=== PATIENT | male | born 1975 | race Caucasian/White ===

== ENCOUNTER 2021-04-29 15:17 | Emergency (ER) | payer BC, SELFPAY ==
--- NOTE | ~2021-04-29 | XR_ITS ---
EXAMINATION: XR ELBOW, RIGHT CLINICAL INFORMATION: Pain COMPARISON: None TECHNIQUE: AP, lateral, and oblique views of the right elbow. FINDINGS: The bones and soft tissues are normal. No fracture or joint effusion. Alignment is anatomic. Joint spaces are maintained. XR/XR elbow RT min 3V IMPRESSION: Unremarkable right elbow exam.
[2021-04-29 15:34] VITALS: BP 131/88; PULSE 95; RESP 16; TEMP 36.6; O2SAT 98; BMI 30.1
--- NOTE | 2021-04-29 16:57 | ED.EXTPRO ---
HPI - Extremity Problem General Chief complaint: Extremity Injury, Upper Stated complaint: elbow pain Time Seen by Provider: 04/29/21 16:52 Source: patient Mode of arrival: ambulatory Limitations: no limitations History of Present Illness HPI Narrative: Patient presents to the ED for right elbow pain for 2 days. Patient states elbow started after playing baseball. Patient states this morning he took a shower and the posterior elbow pain on movement resolved. patient denies any swelling, redness, or warmth. Patient presently denies any pain Related Data Previous Rx's Medication Instructions Recorded naproxen 500 mg PO BID PRN #20 tab 04/29/21 Allergies Allergy/AdvReac Type Severity Reaction Status Date / Time No Known Allergies Allergy Unverified 07/30/20 14:49 Review of Systems Review of Systems: Yes all other systems are reviewed and are negative Constitutional: Constitutional: Reports as per HPI and Reports no additional constitutional complaints Eyes: Eyes: Reports as per HPI and Reports no additional eye complaints ENT: Reports system reviewed and no additional complaints, except as documented and Reports as per HPI Cardiovascular: Cardiovascular: Reports as per HPI and Reports no additional cardiovascular complaints Respiratory: Respiratory: Reports as per HPI and Reports no additional respiratory complaints Gastrointestinal: Gastrointestinal: Reports as per HPI and Reports no additional gastrointestinal complaints Genitourinary: Genitourinary: Reports no additional male genitourinary complaints and Reports as per HPI Musculoskeletal: Musculoskeletal: Reports no additional musculoskeletal complaints, Reports as per HPI and Reports arthralgias (Right elbow pain resolved.) Neurologic: Reports system reviewed and no additional complaints, except as documented and Reports as per HPI Psychiatric: Psychiatric: Reports no additional psychiatric complaints and Reports as per HPI [facility] Past Medical History Medical History (Updated 04/29/21 @ 17:08 by ETHEL Lynch) No known health problems Social History Social History Advance Directives: No Advance Directives Information Provided: Yes Physical Exam Vital Signs: Vital Signs: Last Vital Signs Temp 98 F 04/29/21 15:34 Pulse 95 04/29/21 15:34 Resp 16 04/29/21 15:34 BP 131/88 04/29/21 15:34 Pulse Ox 98 04/29/21 15:34 Body Mass Index 30.1 Const: General: cooperative, healthy appearing, comfortable, no acute distress, well developed, alert, awake and Physically active Orientation/consciousness: patient oriented x3 HENMT: Head: Yes normal to inspection, Yes No palpable skull fracture present, Yes normocephalic and Yes atraumatic Eyes: General: appearance normal, both eyes and all related structures Neck: Neck: Yes normal visual inspection, Yes full ROM, Yes no lymphadenopathy, Yes no meningeal signs, Yes trachea midline, Yes supple and No tender Chest: Chest palpation & inspection: normal inspection of the chest and normal palpation of entire chest wall Resp: Effort & Inspection: normal respiratory effort and able to speak in complete sentences Auscultation: clear to auscultation bilaterally Cardio: Jugular venous distension: no JVD Heart sounds: S1 normal heart sound present and S2 normal heart sound present GI: Inspection: Yes normal to inspection and No abdominal wall ecchymosis Palpation (GI): Soft to palpation, not firm, nontender, no guarding and not rigid : General: No CVA tenderness and Yes no CVA tenderness Back/Spine/Pelvis: Back: no CVA tenderness, No CVA tenderness and No back tenderness Skin: General skin exam: no rashes or lesions noted and elasticity normal Neuro: General: patient oriented x3, gait normal, no meningeal signs and CN's II-XI intact bilaterally Cranial nerves: Yes CN's II-XII intact bilaterally Extrem: Other: Right upper extremity: patient presently does not have any elbow pain. elbow and rest of extremity negative swelling, redness, warmth, fluctulance, coldness, or deformity. Capillary refills intact. motor, neuro, and vascular exam is intact General: Yes normal to inspection and Yes full ROM Psych: Appearance: grossly normal, well kempt and not disheveled Course Course Course Narrative: WIll send for elbow xray Reevaluation(s) Reevaluation #1: xray negative for fracture MDM - Extremity (Nontraumatic) MDM Narrative Medical decision making narrative: elbow sprain Discharge Plan Discharge Clinical Impression: Elbow sprain Patient Disposition: Home, Self-Care Instructions: Elbow Sprain (ED) Additional Instructions: REturn to the ED for elbow/extremity swelling, redness, warmth, fever, chills, chest pain, shortness of breath, blackness of finger, cold extremity, or any other concerning symptoms. Recommend rest of right upper extremity and no sports activity for at least 3 days. Please follow up with PCP Prescriptions: New naproxen 500 mg tablet 500 mg PO BID PRN (Reason: pain) Qty: 20 RF: 0 Stand Alone Forms: Work/School Release Interventions: ED Discharge Assessment Last Done: 04/29/21 17:21 Discharge Date/Time: 04/29/21 17:21 Print Language: Swedish
== END 2021-04-29 17:21 | disposition home or self-care (01) ==
PROVIDERS: Emergency Provider Emergency Medicine
DX: S53.401A Unspecified sprain of right elbow, initial encounter (principal); X58.XXXA Exposure to other specified factors, initial encounter; Y93.64 Activity, baseball; Y92.9 Unspecified place or not applicable; Y99.9 Unspecified external cause status
CPT/HCPCS: 73080; 99283

== ENCOUNTER 2025-04-01 11:51 | Emergency (ER) | payer BC, SELFPAY ==
--- NOTE | ~2025-04-01 | CT_ITS ---
EXAMINATION: CT CERVICAL SPINE WITHOUT CONTRAST CLINICAL INFORMATION: Right-sided neck pain. COMPARISON: None available. TECHNIQUE: Spiral CT imaging of the cervical spine performed in axial plane without contrast. Multiplanar reformatted images were constructed from the axial data set. This CT examination was performed using dose optimization techniques as appropriate, variously including the following: *Automated exposure control *Adjustment of mA and/or kV according to patient size (this includes techniques or standardized protocols for targeted exams where dose is matched to indication/reason for exam; i.e. extremities or head) *Use of iterative reconstruction technique FINDINGS: CORONAL ALIGNMENT: -Normal. SAGITTAL ALIGNMENT: -Minimal reversal of the normal lordosis centered at C3. -No subluxations. C1-C2 AND CRANIOCERVICAL JUNCTION: -Intact and normally aligned. VERTEBRAL BODIES AND FACETS: -There are no fractures, compression deformity, or suspicious bone lesions. There is no traumatic subluxation. -There is normal facet alignment bilaterally. No significant facet arthrosis. DISCS: -Mild disc degeneration is present C5-6 and C6-7, with associated mild uncinate spurring bilaterally. This contributes to moderate to severe bilateral neural foraminal stenosis at C6-7. CENTRAL CANAL: -No evidence of high-grade central canal narrowing or large disc herniation allowing for modality limitations. PREVERTEBRAL AND PARAVERTEBRAL SOFT TISSUES: -No prevertebral or paravertebral soft tissue edema or swelling. No abnormal fluid collection. -The thyroid gland images normally. -There is no mass or lymphadenopathy within the neck. LUNG APICES: -The imaged lung apices demonstrate mild asymmetric biapical scarring bladder otherwise clear. CT/CT cervical spine wo IV con IMPRESSION: 1. No acute findings of the cervical spine. No CT evidence of acute cervical spine fracture or injury. 2. Mild disc degeneration with uncinate spurring present C5-6 and C6-7. Electronically signed by: Carmelo Jesus MD 04/01/2025 01:30 PM EDT
--- NOTE | 2025-04-01 12:42 | ED.GENADULT ---
HPI - General Adult General Chief complaint: Neck Pain/Injury Stated complaint: Neck pain 4 days Time Seen by Provider: 04/01/25 14:14 Source: patient Mode of arrival: ambulatory Limitations: no limitations History of Present Illness ED Provider: SELENA STOKES PA-C HPI narrative: 50-year-old male with no significant pmhx presents to the ED today for evaluation of right-sided neck pain x3 days. States he feels as though he slept wrong. Reports waking up with this pain. Has difficulty turning his neck to the right. No difficulty turning it to the left. Denies any blunt injury or trauma. Denies any numbness/tingling/weakness of the upper extremities. Denies fever/chills. Related Data Previous Rx's ?Medication ?Instructions ?Recorded naproxen 500 mg tablet 500 mg PO BID PRN pain #20 tabs 04/29/21 cyclobenzaprine 5 mg tablet 5 mg PO Q8H PRN neck spasm #7 tabs 04/01/25 lidocaine 5 % topical patch 1 patch topical DAILY #15 ea 04/01/25 (Lidoderm) Allergies Allergy/AdvReac Type Severity Reaction Status Date / Time No Known Allergies Allergy Verified 04/01/25 12:45 Review of Systems Review of Systems: Yes all other systems are reviewed and are negative PMFSH Past Medical History Attestation statement: The following information was validated with the patient. Source: old records reviewed and nursing notes reviewed Medical History No known health problems Social History Social History Advance Directives: No Advance Directives Information Provided: Yes Physical Exam ED Vital Signs: Vital Signs - 24 hr 04/01/25 12:44 04/01/25 14:33 Temperature 96.9 F 96.9 F Pulse Rate 75 75 Respiratory Rate 16 16 Blood Pressure 137/88 137/88 Pulse Oximetry 100 100 Oxygen Delivery Method Room Air Room Air BMI result Body Mass Index 24.2 Vital signs stable, afebrile. General: Well appearing, in no acute distress. Skin: Warm, dry, intact. No rashes or lesions. Head: Normocephalic, atraumatic. EENT: Hearing is intact b/l. Conjunctiva clear. Sclera is anicteric. PERRLA. EOM intact. Moist mucous membranes.? Neck: no midline c spine tenderness or step off. +palpable spasm to right cervical paraspinal musculature extending over right trap muscle. Somewhat limited ROM on leftward motion of C-spine. Cardiac: Chest wall symmetric. RRR Back: No midline spinous or paraspinal tenderness. No step off deformity. Ext: Upper and lower extremities atraumatic, without tenderness, deformity, swelling or erythema Neuro: AOx3. Normal speech. Sensation intact to light touch. NV intact distally. Ambulating with steady gait. Course Course Course Narrative: 04/01/25 1243 ETHEL Monsalve This is a Rapid Medical Examination (RME) performed by Beulah Stokes PA-C in triage. Full HPI, ROS, assessment and treatment plan per primary provider in the Main ED. Hx:50 yo M here for eval of right sided neck pain x4 days. woke up like this, is unsure if he slept wrong. no injury/trauma. trialed motrin with minimal relief. PE/vitals: +palpable spasm to right cervical paraspinal musculature, limited ROM to right. no pain on chin to chest. Plan: ct Reevaluation(s) Reevaluation #1: 1426 --the cervical spine without fracture or subluxation. Exam consistent with muscle spasm to right cervical paraspinal musculature. Given a dose of Toradol in the ED today. Flexeril and lidocaine patches sent to pharmacy. Patient has remained stable throughout ED visit today. Discussed worrisome signs and symptoms and when to return to the ED. All questions answered at this time. Patient is agreeable with disposition and stable for discharge. Medications Administered Discontinued Medications Generic Name Dose Route Start Last Admin Trade Name Freq PRN Reason Stop Dose Admin Ketorolac Tromethamine 30 mg 04/01/25 14:14 04/01/25 14:35 Ketorolac Tromethamine 30 Mg/Ml Vial IM 04/01/25 14:15 30 mg ONCE ONE Administration Medical Decision Making Medical Decision Making [facility] Narrative: 50-year-old male with no significant pmhx presents to the ED today for evaluation of right-sided neck pain x3 days. on exam, no midline c spine tenderness or step off. +palpable spasm to right cervical paraspinal musculature extending over right trap muscle. Somewhat limited ROM on leftward motion of C-spine. nv intact distally. No nuchal rigidity or meningeal signs. Differential diagnosis includes msk sprain/strain, cervical spasm, torticollis, cervical radiculopathy. Unlikely cord compression, meningitis. Plan for imaging, pain control, and re-evaluation. Differential Diagnosis Differential Diagnoses: The differential diagnosis associated with the presentation includes as above. Admission/Observation not indicated Independent Interpretation I performed an independent interpretation of an: CT Scan Interpretation: CT cervical spine without fracture or subluxation Radiology Impression Discussion of test interpretation with radiology: I have reviewed the radiologist's reading. Radiologist Impression: Procedure(s): CT cervical spine wo IV con Accession Number(s): [id number] cc: Zelalem Woody MD; Selena Stokes~ Report Number: [id number]: Total DLP = 388.00 mGy-cm EXAMINATION: CT CERVICAL SPINE WITHOUT CONTRAST CLINICAL INFORMATION: Right-sided neck pain. COMPARISON: None available. TECHNIQUE: Spiral CT imaging of the cervical spine performed in axial plane without contrast. Multiplanar reformatted images were constructed from the axial data set. This CT examination was performed using dose optimization techniques as appropriate, variously including the following: *Automated exposure control *Adjustment of mA and/or kV according to patient size (this includes techniques or standardized protocols for targeted exams where dose is matched to indication/reason for exam; i.e. extremities or head) *Use of iterative reconstruction technique FINDINGS: CORONAL ALIGNMENT: -Normal. SAGITTAL ALIGNMENT: -Minimal reversal of the normal lordosis centered at C3. -No subluxations. C1-C2 AND CRANIOCERVICAL JUNCTION: -Intact and normally aligned. VERTEBRAL BODIES AND FACETS: -There are no fractures, compression deformity, or suspicious bone lesions. There is no traumatic subluxation. -There is normal facet alignment bilaterally. No significant facet arthrosis. DISCS: -Mild disc degeneration is present C5-6 and C6-7, with associated mild uncinate spurring bilaterally. This contributes to moderate to severe bilateral neural foraminal stenosis at C6-7. CENTRAL CANAL: -No evidence of high-grade central canal narrowing or large disc herniation allowing for modality limitations. PREVERTEBRAL AND PARAVERTEBRAL SOFT TISSUES: -No prevertebral or paravertebral soft tissue edema or swelling. No abnormal fluid collection. -The thyroid gland images normally. -There is no mass or lymphadenopathy within the neck. LUNG APICES: -The imaged lung apices demonstrate mild asymmetric biapical scarring bladder otherwise clear. CT/CT cervical spine wo IV con IMPRESSION: 1. No acute findings of the cervical spine. No CT evidence of acute cervical spine fracture or injury. 2. Mild disc degeneration with uncinate spurring present C5-6 and C6-7. Electronically signed by: Carmelo Jesus MD 04/01/2025 01:30 PM EDT Prescription Management I considered prescription management with: Pain Medication and Other (Flexeril, lidocaine patch) Social Determinants Patient?s care significantly limited by Social Determinants of Health including: Other Social Determinant of Health Critical Care Time Critical Care Time Critical Care Time: No Discharge Plan Discharge Clinical Impression: Cervical paraspinal muscle spasm Patient Disposition: Home, Self-Care Instructions: Muscle Spasm (ED) Additional Instructions: You were evaluated in the Emergency Department today for your neck pain. Your evaluation did not show signs of medical conditions requiring emergent intervention at this time. Use ice several times per day for 20 minutes at a time for the next 48 hours and then change to heat. I recommend you take 600mg ibuprofen every 6 hours or tylenol 650mg every 6 hours as needed for pain. If needed, you can alternate these medications so that you take one medication every 3 hours. For example, at noon take ibuprofen, then at 3pm take tylenol, then at 6pm take ibuprofen. Flexeril is a muscle relaxer. Take this at night as it makes you drowsy. Do not drive, drink alcohol, or operate machinery while taking it. Lidoderm patches are numbing patches. Apply to painful areas. Please schedule an appointment for follow-up with your primary care provider this week for further evaluation of your symptoms. Return to the Emergency Department if you experience worsening neck pain, difficulty walking, fevers, numbness, tingling, incontinence, or any other concerning symptoms. In the case of an emergency call 911. Prescriptions: New cyclobenzaprine 5 mg tablet 5 mg PO Q8H PRN (Reason: neck spasm) Qty: 7 0RF lidocaine [Lidoderm] 5 % adhesive patch,medicated 1 patch topical DAILY Qty: 15 0RF Rx Instructions: leave on most painful area for up to 12 hrs No Action naproxen 500 mg tablet 500 mg PO BID PRN (Reason: pain) Qty: 20 0RF Referrals: Zelalem Woody MD [Physician] - Stand Alone Forms: Work/School Release Interventions: ED Discharge Assessment Last Done: 04/01/25 14:33 Discharge Date/Time: 04/01/25 14:35 Print Language: Urdu
[2025-04-01 12:44] VITALS: BP 137/88; PULSE 75; RESP 16; TEMP 36.1; O2SAT 100; BMI 24.2
[2025-04-01 14:33] VITALS: BP 137/88; PULSE 75; RESP 16; TEMP 36.1; O2SAT 100
[2025-04-01] MEDS: Ketorolac Tromethamine 30 MG/ML VIAL IM (14:35)
== END 2025-04-01 14:35 | disposition home or self-care (01) ==
LOC: HO.ED 14:29
PROVIDERS: Emergency Provider Emergency Medicine
DX: M54.2 Cervicalgia (principal); Z79.899 Other long term (current) drug therapy
CPT/HCPCS: 72125; 96372; 99283; 99284; J1885

== ENCOUNTER → 2025-04-01 12:45 | Outpatient (BNV) | payer BC, SELFPAY | PROVIDERS: PCP Family Medicine; Visit Provider Radiology Diagnostic Radiology | DX: M54.2 Cervicalgia (principal) | CPT/HCPCS: 72125 ==